=== PATIENT | male | born 1955 | race Caucasian/White ===

== ENCOUNTER 2024-06-11 14:13 | Inpatient (IN) | payer MEDICARE ==
[~2024-06-11] VITALS: Ht 180.3 cm; Wt 113.4 kg
[2024-06-11 15:07] LABS: BASOPHILS % (AUTO) 0.2 % (0.0-2.0); HEMATOCRIT 44 % (39-51); HEMOGLOBIN 15.8 g/dL (13.5-17.5); LYMPHOCYTES # (AUTO) 0.8 K/uL (0.8-4.8); LYMPHOCYTES % (AUTO) 4.7 % (20.0-44.0); MEAN CORPUSCULAR HEMOGLOBIN 32 PG (26.0-33.0); MEAN CORPUSCULAR HGB CONC 36 g/dl (31.0-36.0); MEAN CORPUSCULAR VOLUME 91 fL (80-96); MONOCYTES # (AUTO) 1.1 K/uL (0.1-1.30); MONOCYTES % (AUTO) 6.6 % (2.0-12.0); NEUTROPHILS # (AUTO) 14.4 K/uL (1.8-8.9); NEUTROPHILS % (AUTO) 88.5 % (43.0-81.0); PLATELET COUNT (AUTO) 137 K/uL (150-450); RED BLOOD CELL COUNT(AUTO) 4.88 MIL/uL (4.5-6.0); RED CELL DISTRIBUTION WIDTH 13.7 % (11.5-15.0); WHITE BLOOD COUNT (AUTO) 16.3 K/uL (4.3-11.0)
[2024-06-11 15:23] LABS: CALCIUM, SERUM 8.5 mg/dL (8.5-10.1); CREATININE 1.5 mg/dL (0.6-1.3); POTASSIUM 4.3 mmol/L (3.5-5.1)
[2024-06-11] MEDS: IV NS 0.9% 1,000 ML BAG IV ONE (16:02)
[2024-06-11] MEDS ORDERED: MULT-1241 PO (16:59)
[2024-06-11] MEDS: BACI/NEOM/POLY B OINT PKT 1 UDPKT PACKET TP ONE (17:00)
[2024-06-11] MEDS ORDERED: Z GUARD REMEDY 4 OZ OINT TP PRN (17:00)
[2024-06-11] MEDS ORDERED: ONDANSETRON HCL/PF 4 MG/2 ML VIAL IVP PRN (17:00)
[2024-06-11] MEDS ORDERED: ACETAMINOPHEN 325 MG TABLET PO PRN (17:00)
[2024-06-11] MEDS ORDERED: MAG HYDROX/AL HYDROX/SIMETH 30 ML UDC PO PRN (17:00)
[2024-06-11] MEDS ORDERED: MAGNESIUM HYDROXIDE 30 ML UDC PO PRN (17:00)
[2024-06-11] MEDS: TDAP [DIPH/PERTUSSIS/TET] 0.5 ML VIAL IM ONE (18:00)
[2024-06-11] MEDS ORDERED: TDAP [DIPH/PERTUSSIS/TET] 0.5 ML VIAL IM ONE (18:25)
[2024-06-11] MEDS ORDERED: BACI/NEOM/POLY B OINT PKT 1 UDPKT PACKET ONE (18:25)
[2024-06-11 19:06] LABS: APPEARANCE,URINE SLIGHTLY CLOUDY (CLEAR); COLOR,URINE YELLOW (YELLOW); PROTEIN,URINE 1+ mg/dl (NEGATIVE)
[2024-06-11 19:07] LABS: BILIRUBIN,URINE NEGATIVE (NEGATIVE); BLOOD, URINE 1+ Ery/uL (NEGATIVE); KETONES,URINE NEGATIVE (NEGATIVE); LEUKOCYTE ESTERASE ,URINE 1+ (NEGATIVE); NITRITE, URINE POSITIVE (NEGATIVE); UGLUCOSE NEGATIVE (NEGATIVE); UROBILINOGEN,URINE 0.2 EU/dL (0.2)
[2024-06-11 19:08] LABS: ADD URINE CULTURE YES; BACTERIA,URINE 1+ /HPF (None Seen); MUCUS,URINE Few /LPF (None Seen); SQUAMOUS EPITHELIAL CELL,UR 0-2 /HPF (None Seen); WBC,URINE 51-80 /HPF (0-3)
[2024-06-11] MEDS: CEFTRIAXONE 1 G in IV D5W 50 ML IV SCH (20:46)
[2024-06-11] MEDS ORDERED: ASPIRIN 81 MG TAB.CHEW ONE ×2 (22:04)
[2024-06-11] MEDS: ASPIRIN 81 MG TAB.CHEW PO ONE (22:05)
[2024-06-11] MEDS ORDERED: ENOXAPARIN SODIUM 60 MG/0.6 ML DISP.SYRIN SQ ONE (22:34)
[2024-06-11] MEDS: ENOXAPARIN SODIUM 120 MG/0.8 ML DISP.SYRIN SQ SCH (22:41)
[2024-06-12] MEDS: IV NS 0.9% 1,000 ML IV PRN ×2 (03:05→22:33)
[2024-06-12 06:44] LABS: BASOPHILS % (AUTO) 0.4 % (0.0-2.0); EOSINOPHILS % (AUTO) 0.1 % (0.0-6.0); HEMATOCRIT 45 % (39-51); LYMPHOCYTES # (AUTO) 1.4 K/uL (0.8-4.8); LYMPHOCYTES % (AUTO) 12.6 % (20.0-44.0); MEAN CORPUSCULAR HEMOGLOBIN 32 PG (26.0-33.0); MEAN CORPUSCULAR HGB CONC 36 g/dl (31.0-36.0); MEAN CORPUSCULAR VOLUME 91 fL (80-96); MONOCYTES # (AUTO) 1.3 K/uL (0.1-1.30); MONOCYTES % (AUTO) 11.6 % (2.0-12.0); NEUTROPHILS # (AUTO) 8.5 K/uL (1.8-8.9); NEUTROPHILS % (AUTO) 75.3 % (43.0-81.0); PLATELET COUNT (AUTO) 125 K/uL (150-450); RED BLOOD CELL COUNT(AUTO) 4.93 MIL/uL (4.5-6.0); RED CELL DISTRIBUTION WIDTH 13.5 % (11.5-15.0); WHITE BLOOD COUNT (AUTO) 11.3 K/uL (4.3-11.0)
[2024-06-12 07:05] LABS: CALCIUM, SERUM 8.6 mg/dL (8.5-10.1); CREATININE 1.1 mg/dL (0.6-1.3); MAGNESIUM 2.3 mg/dL (1.8-2.4); PHOSPHORUS 2.6 mg/dL (2.5-4.9); POTASSIUM 3.7 mmol/L (3.5-5.1)
[2024-06-12 09:00] VITALS: BP 155/100; TEMP 98.5; O2SAT 96
[2024-06-12] MEDS: ASPIRIN 81 MG TAB.CHEW PO SCH (10:40)
[2024-06-12 12:00] VITALS: BP 146/79; TEMP 99.3; O2SAT 94
[2024-06-12 15:22] LABS: CREATININE, URINE 135.2 MG/DL (30.0-125.0); URINE TOTAL PROTEIN 254.1 mg/dL (0-11.9)
[2024-06-12 16:00] VITALS: BP 158/95; TEMP 99; O2SAT 98
[2024-06-12] MEDS ORDERED: DEXTROSE 50%-WATER 50 ML DISP.SYRIN IV PRN (17:00)
[2024-06-12] MEDS: BLOOD SUGAR DIAGNOSTIC 1 EACH STRIP IN SCH (17:52)
[2024-06-12] MEDS: INSULIN REGULAR, HUMAN 100 UNIT/ML 3 ML VIAL SQ PRN (17:52)
[2024-06-12 21:00] VITALS: BP 152/86; TEMP 98.4; O2SAT 97
[2024-06-13 01:00] VITALS: BP 145/72; TEMP 98.6; O2SAT 98
[2024-06-13 04:35] VITALS: BP 150/82; TEMP 98.4; O2SAT 96
[2024-06-13 05:00] VITALS: BP 150/82; TEMP 98.4; O2SAT 96
[2024-06-13 08:00] VITALS: BP 149/81; TEMP 97.6; O2SAT 98
[2024-06-13 09:33] LABS: ALBUMIN 2.8 g/dL (3.4-5.0); BILIRUBIN,TOTAL 1.1 mg/dL (0.2-1.0); CALCIUM, SERUM 8.2 mg/dL (8.5-10.1); MAGNESIUM 2.2 mg/dL (1.8-2.4); PHOSPHORUS 2.7 mg/dL (2.5-4.9); POTASSIUM 3.9 mmol/L (3.5-5.1)
[2024-06-13 09:43] LABS: BASOPHILS % (AUTO) 0.5 % (0.0-2.0); EOSINOPHILS % (AUTO) 0.6 % (0.0-6.0); HEMATOCRIT 41 % (39-51); HEMOGLOBIN 14.4 g/dL (13.5-17.5); LYMPHOCYTES # (AUTO) 1.4 K/uL (0.8-4.8); MEAN CORPUSCULAR HEMOGLOBIN 32 PG (26.0-33.0); MEAN CORPUSCULAR HGB CONC 35 g/dl (31.0-36.0); MEAN CORPUSCULAR VOLUME 92 fL (80-96); MONOCYTES % (AUTO) 12.7 % (2.0-12.0); NEUTROPHILS # (AUTO) 5.2 K/uL (1.8-8.9); NEUTROPHILS % (AUTO) 68.2 % (43.0-81.0); PLATELET COUNT (AUTO) 139 K/uL (150-450); RED BLOOD CELL COUNT(AUTO) 4.47 MIL/uL (4.5-6.0); RED CELL DISTRIBUTION WIDTH 13.6 % (11.5-15.0); WHITE BLOOD COUNT (AUTO) 7.6 K/uL (4.3-11.0)
[2024-06-13] MEDS: NEOMY SULF/BACITRAC ZN/POLY 15 GM TUBE TP SCH (11:37)
[2024-06-13 16:00] VITALS: BP 145/86; TEMP 97.4; O2SAT 97
[2024-06-13 20:00] VITALS: BP 160/88; TEMP 97.9; O2SAT 98
[2024-06-14 04:00] VITALS: BP 155/66; TEMP 97.9; O2SAT 99
[2024-06-14 08:00] VITALS: BP 155/76; TEMP 97.9; O2SAT 98
[2024-06-14 08:34] LABS: CALCIUM, SERUM 8.2 mg/dL (8.5-10.1); CREATININE 0.8 mg/dL (0.6-1.3); POTASSIUM 3.9 mmol/L (3.5-5.1)
[2024-06-14 13:11] LABS: PTH, INTACT 31 pg/mL (15-65)
[2024-06-14 16:00] VITALS: BP 186/93; TEMP 97.9; O2SAT 99
[2024-06-14] MEDS: LOSARTAN POTASSIUM 25 MG TABLET PO SCH (17:18)
[2024-06-14] MEDS: IV 1/2NS 1000 ML 1,000 ML IV PRN (20:36)
[2024-06-14 20:45] VITALS: BP 153/87; TEMP 98.2; O2SAT 100
[2024-06-14] MEDS: ZOLPIDEM TARTRATE 5 MG TABLET PO PRN (23:25)
[2024-06-15 04:00] VITALS: BP 173/86; TEMP 98.2; O2SAT 99
[2024-06-15 08:00] VITALS: BP 181/79; TEMP 98.2; O2SAT 99
[2024-06-15 08:05] LABS: BASOPHILS # (AUTO) 0.1 K/uL (0.0-0.2); BASOPHILS % (AUTO) 1.6 % (0.0-2.0); EOSINOPHILS # (AUTO) 0.1 K/uL (0.0-0.7); EOSINOPHILS % (AUTO) 1.7 % (0.0-6.0); HEMATOCRIT 41 % (39-51); HEMOGLOBIN 14.4 g/dL (13.5-17.5); LYMPHOCYTES # (AUTO) 1.4 K/uL (0.8-4.8); LYMPHOCYTES % (AUTO) 21.6 % (20.0-44.0); MEAN CORPUSCULAR HEMOGLOBIN 32 PG (26.0-33.0); MEAN CORPUSCULAR HGB CONC 35 g/dl (31.0-36.0); MEAN CORPUSCULAR VOLUME 91 fL (80-96); MONOCYTES # (AUTO) 0.5 K/uL (0.1-1.30); NEUTROPHILS # (AUTO) 4.4 K/uL (1.8-8.9); NEUTROPHILS % (AUTO) 67.1 % (43.0-81.0); PLATELET COUNT (AUTO) 166 K/uL (150-450); RED BLOOD CELL COUNT(AUTO) 4.48 MIL/uL (4.5-6.0); RED CELL DISTRIBUTION WIDTH 13.4 % (11.5-15.0); WHITE BLOOD COUNT (AUTO) 6.5 K/uL (4.3-11.0)
[2024-06-15 08:23] LABS: CALCIUM, SERUM 8.2 mg/dL (8.5-10.1); CREATININE 0.8 mg/dL (0.6-1.3)
[2024-06-15 09:30] VITALS: BP 136/68; TEMP 98.2; O2SAT 99
[2024-06-15] MEDS: HYDROCHLOROTHIAZIDE 25 MG TABLET PO SCH (11:20)
[2024-06-15 14:00] VITALS: BP 146/84; TEMP 98.2; O2SAT 99
[2024-06-15 16:00] VITALS: BP 143/80; TEMP 98.6; O2SAT 99
[2024-06-15] MEDS: APIXABAN 5 MG TABLET PO SCH (16:25)
[2024-06-15 20:00] VITALS: BP 165/82; TEMP 97.5; O2SAT 100
[2024-06-16 08:41] VITALS: BP 155/83
[2024-06-16] MEDS ORDERED: Neomy Sulf/Bacitrac Zn/Poly TP (09:58)
[2024-06-16] MEDS ORDERED: METF-881 PO (09:58)
[2024-06-16] MEDS ORDERED: ASPI-1169 PO (09:58)
[2024-06-16] MEDS ORDERED: HYDR25TA4 PO (09:58)
[2024-06-18 09:07] LABS: *SPE A/G RATIO 0.8 (0.7-1.7); *SPE ALBUMIN 2.8 g/dL (2.9-4.4); *SPE ALPHA-1-GLOBULIN 0.3 g/dL (0.0-0.4); *SPE ALPHA-2-GLOBULIN 0.7 g/dL (0.4-1.0); *SPE BETA GLOBULIN 1.1 g/dL (0.7-1.3); *SPE GLOBULIN, TOTAL 3.4 g/dL (2.2-3.9); *SPE M-SPIKE Not Observed g/dL (Not Observed); *SPE PROTEIN TOTAL 6.2 g/dL (6.0-8.5); *SPEGAMMA GLOBULIN 1.3 g/dL (0.4-1.8)
== END 2024-06-16 14:16 | disposition home health service (06) | DRG 871 ==
LOC: ER 14:20 → OBSER 06-12 02:07 → TELE1 06-12 05:33 → MEDSG1 06-13 10:25
PROVIDERS: ADMIT Nurse Practitioner Acute Care; ATTEND Nurse Practitioner Acute Care
DX: A41.9 Sepsis, unspecified organism (principal); I21.A1 Myocardial infarction type 2; N17.0 Acute kidney failure with tubular necrosis; N39.0 Urinary tract infection, site not specified; M62.82 Rhabdomyolysis; E87.1 Hypo-osmolality and hyponatremia; S09.90XA Unspecified injury of head, initial encounter; W01.0XXA Fall on same level from slipping, tripping and stumbling without subsequent striking against object, initial encounter; E66.9 Obesity, unspecified; E86.1 Hypovolemia; I10 Essential (primary) hypertension; M89.8X9 Other specified disorders of bone, unspecified site; Z68.34 Body mass index [BMI] 34.0-34.9, adult; Z98.2 Presence of cerebrospinal fluid drainage device; Z20.822 Contact with and (suspected) exposure to COVID-19; B96.89 Other specified bacterial agents as the cause of diseases classified elsewhere; N40.1 Benign prostatic hyperplasia with lower urinary tract symptoms; E11.9 Type 2 diabetes mellitus without complications; Y92.009 Unspecified place in unspecified non-institutional (private) residence as the place of occurrence of the external cause
CPT/HCPCS: 36415; 70450-TC; 71045-TC; 72125-TC; 80048-TC; 80053-TC; 81001; 82550-TC; 82553; 82570-TC; 82962-TC; 83735-TC; 83970; 84100-TC; 84155; 84165; 84300-TC; 84484-TC; 85025-TC; 87086-TC; 90715; 93307-TC; 97116-TC; 97530-TC; A4223; A6403; G0378; J0696; J1650; J1815; J3490; J7030; J7060